=== PATIENT | female | born 1990 | race Caucasian/White ===

== ENCOUNTER 2020-12-22 05:10 | Emergency (ER) | payer OTHER, SELFPAY ==
--- NOTE | ~2020-12-22 | XR_ITS ---
EXAMINATION: XR abdomen/kub 1V DATE: 12/22/2020 10:02 INDICATION: Left flank pain. TECHNIQUE: A supine view of the abdomen on 2 radiographs was obtained. COMPARISON: CT abdomen and pelvis 12/22/2020 FINDINGS: There are no dilated loops of bowel. There is a 4 x 7 mm stone in proximal left ureter at L 2-L3. There are phleboliths in the pelvis. IMPRESSION: 1. 4 x 7 mm stone in proximal left ureter at L2-L3. Reviewed, dictated and finalized at location A.
--- NOTE | ~2020-12-22 | CT_ITS ---
EXAMINATION: CT abdomen pelvis wo con DATE: 12/22/2020 07:39 INDICATION: Kidney stone presenting with left flank pain. TECHNIQUE: Computed tomography (CT) of the abdomen and pelvis was performed without intravenous contr ast. Automated exposure control and iterative reconstruction technique were employed. The dose-length product was 480.00 mGy-cm. COMPARISON: None FINDINGS: Lung bases are clear. Heart size is normal. No pericardial or pleural effusion. Liver, gallbladder, s pleen, pancreas and bilateral adrenal glands are normal. 4 x 7 mm stone in the proximal left ureter r esulting in mild left hydronephrosis. No other urolithiasis. Right kidney and ureter are normal. Blad ynes is normal. A few phleboliths in the pelvis. Anteverted uterus and bilateral adnexa are unremarkab le. Bowels including the appendix are normal. No free intraperitoneal gas or fluid. No pathologically enlarged abdominal or pelvic lymphadenopathy. Bones are unremarkable. IMPRESSION: 1. 4 x 7 mm obstructing stone in the proximal left ureter with mild left hydronephrosis. Reviewed, dictated and finalized at location A. IMPRESSION: 1. 4 x 7 mm obstructing stone in the proximal left ureter with mild left hydron ephrosis.
[2020-12-22 05:16] VITALS: BP 137/87; PULSE 104; RESP 18; TEMP 36.6; O2SAT 96
[2020-12-22 05:42] LABS: Basophils Absolute Auto 0.1 K/mm3 (0.0-0.1); Basophils Percent Auto 0.4 % (0.2-1.2); Eosinophils Absolute Auto 0.1 K/mm3 (0-0.3); Hematocrit 38.4 % (37.0-47.0); Hemoglobin 13.5 g/dL (12.0-15.0); Immature Granulocyte Absolute 0.03 K/mm3 (0.00-0.031); Immature Granulocyte Percent A 0.2 % (0-0.5); Lymphocytes Absolute Auto 1.95 K/mm3 (0.9-3.2); Lymphocytes Percent Auto 15.6 % (18.3-44.2); Mean Corpuscular HGB Conc 35.2 g/dl (32-36); Mean Corpuscular Hemoglobin 30.2 pg (26-34); Mean Corpuscular Volume 85.9 fl (80-100); Mean Platelet Volume 9.6 fl (7.4-10.4); Monocytes Absolute Auto 0.7 K/mm3 (0.1-0.6); Monocytes Percent Auto 5.4 % (2.6-8.5); Neutrophils Absolute Auto 9.7 K/mm3 (1.3-6.7); Neutrophils Percent Auto 77.4 % (45.5-73.1); Platelet Count Result 241 k/mm3 (150-375); Red Blood Count 4.47 M/mm3 (4.2-5.4); Red Cell Distribution Width 11.9 % (11.5-14.5); White Blood Count 12.5 K/mm3 (4.5-10.0)
[2020-12-22 05:52] LABS: Alanine Aminotransferase 16 U/L (4-35); Albumin Level 4.4 g/dL (3.5-5.1); Alkaline Phosphatase 97 U/L (38-126); Anion Gap 10 mmol/L (8-16); Aspartate Amino Transferase 20 U/L (14-36); Bilirubin,Total 0.3 mg/dL (0.2-1.3); Blood Urea Nitrogen 13 mg/dL (7-17); Calcium 9.3 mg/dL (8.4-10.2); Carbon Dioxide 26 mmol/L (22-30); Chloride 104 mmol/L (98-107); Estimated CRCL calculation 124 ml/min; Estimated Glomerular Filt Rate > 60; Glucose 107 mg/dL (65-105); Lipase 76 U/L (23-300); Potassium 3.8 mmol/L (3.4-5.0); Sodium 140 mmol/L (137-145)
[2020-12-22 06:14] LABS: Add Urine Microscopic? YES; Appearance Urine Clear (Clear); Bacteria Urine Trace /hpf; Bilirubin Urine Negative (Negative); Blood Urine 1+ (Negative); Color Urine Yellow (Yellow); Glucose Urine UA Negative (Negative); Ketones Urine Negative (Negative); Leukocyte Esterase Ur 1+ LEU/UL (Negative); Mucus Urine Few /lpf; Nitrate Urine Negative (Negative); Protein Urine 1+ mg/dL (Negative); RBC Urine 21-50 /hpf (0-2); Specific Grav Ur 1.028 (1.001-1.035); Squamous Epithelial Cell Urine Occasional /hpf (Few); Urobilinogen Urine Negative mg/dL (<2.0)
--- NOTE | 2020-12-22 06:59 | ED.BACK ---
HPI - Back Pain/Injury General Chief Complaint: Back Pain/Injury <Deyanira Valadez MD - Last Filed: 12/22/20 07:08> Stated Complaint: left lower back pain <Deyanira Valadez MD - Last Filed: 12/22/20 07:08> Time Seen by Provider: 12/22/20 06:59 <Deyanira Valadez MD - Last Filed: 12/22/20 07:08> Source: patient and RN notes reviewed <Deyanira Valadez MD - Last Filed: 12/22/20 07:08> Mode of arrival: ambulatory <MD Alejandra Blackburn Last Filed: 12/22/20 07:08> Limitations: no limitations <MD Aleajndra Blackburn Last Filed: 12/22/20 07:08> History of Present Illness HPI Narrative: Patient is 30 years old white female presents to the ED with left lower back flank pain woke her up 1 hour prior to arrival to the emergency room associated with nausea and diaphoresis. Patient denies any aggravating or relieving factors. Patient denies any similar symptoms in the past. Patient drove herself to the emergency room. Patient denies any fever, chills, abdominal pain, chest pain, shortness of breath, headache. <Deyanira Valadez MD - Last Filed: 12/22/20 07:08> Related Data Allergies/Adverse Reactions: Allergies Allergy/AdvReac Type Severity Reaction Status Date / Time No Known Allergies Allergy Unverified 12/22/20 05:24 <MD Alejandra Blackburn Last Filed: 12/22/20 07:08> Review of Systems Review of Systems: Narrative: CONSTITUTIONAL: Denies fever, chills, or sweats. EYES: Denies visual changes, redness, or discharge. ENT: Denies rhinorrhea, congestion, sore throat, or otalgia. CARDIOVASCULAR: Denies chest pain, palpitations, or edema. RESPIRATORY: Denies cough or dyspnea. GASTROINTESTINAL: Denies abdominal pain, nausea, vomiting, or diarrhea. GENITOURINARY: Denies dysuria or hematuria. SKIN: Denies rash or itching. MUSCULOSKELETAL: Denies back pain, joint pain, or myalgia. NEUROLOGIC: Denies headache, numbness, or weakness. PSYCHIATRIC: Denies anxiety or depression. <Deyanira Valadez MD - Last Filed: 12/22/20 07:08> [facility] Social History Social History: Social History Gender identity (if verbalized by the patient): Female Sexual Orientation (if Verbalized by the Patient): Straight or Heterosexual <Deyanira Valadez MD - Last Filed: 12/22/20 07:08> Exam Narrative: Exam Narrative: General appearance: Well-developed, well-nourished Skin: Normal color Head: Normocephalic, nontraumatic Eyes: Clear conjunctiva ENT: Oropharynx normal, ears normal, nose normal Neck: Supple, nontender Chest and respiratory: Airway patent, no respiratory distress, no accessory muscle use Heart: Regular rate/rhythm Abdomen: Soft, nontender, no organomegaly, quiet bowel sounds Vascular: Normal peripheral pulses, normal capillary refill. Musculoskeletal: Normal range of motion, nontender back Neurologic: Alert and oriented ?3, [employer] is normal as tested, no gross motor deficit <Deyanira Valadez MD - Last Filed: 12/22/20 07:08> Course Course Emergency Course: Stable <Deyanira Valadez MD - Last Filed: 12/22/20 07:08> Patient reexamined at 10:30 AM, currently denies any pain. Patient states that she is feeling better. <Darrion Webb MD - Last Filed: 12/22/20 10:56> Vital Signs Vital signs: Vital Signs Temperature 36.6 C 12/22/20 05:16 Pulse Rate 104 H 12/22/20 05:16 Respiratory Rate 18 12/22/20 05:16 Blood Pressure 137/87 12/22/20 05:16 Pulse Oximetry 96 12/22/20 05:16 Temperature 36.6 C 12/22/20 05:16 Pulse Rate 74 12/22/20 09:16 Respiratory Rate 15 12/22/20 09:16 Blood Pressure 101/62 12/22/20 09:16 Pulse Oximetry 99 12/22/20 09:16
[2020-12-22] MEDS: ONDANSETRON INJ 4 MG/2 ML VIAL IV PUSH (07:11)
[2020-12-22] MEDS: HYDROmorphone HCL INJ (*CRX) 1 MG/ML SYR 0.5 MG IV PUSH (07:11)
[2020-12-22] MEDS: SODIUM CHLORIDE 0.9% IV 1,000 ML 999 ML IV CONT (07:12)
[2020-12-22] MEDS: TAMSULOSIN HCL 0.4 MG CAPSULE PO (07:13)
[2020-12-22 07:14] VITALS: BP 127/84; PULSE 92; RESP 20; O2SAT 99
--- NOTE | 2020-12-22 07:40 | PC.NURSE ---
Pt to CT via Stretcher at this time.
[2020-12-22 08:03] VITALS: BP 107/64; PULSE 74; RESP 15; O2SAT 99
[2020-12-22 09:16] VITALS: BP 101/62; PULSE 74; RESP 15; O2SAT 99
--- NOTE | 2020-12-22 10:01 | PC.NURSE ---
Pt to XRAY via w/c.
[2020-12-22 11:06] VITALS: BP 101/71; PULSE 75; RESP 14; O2SAT 99
== END 2020-12-22 11:07 | disposition home or self-care (01) ==
PROVIDERS: Emergency Medicine; Emergency Provider Emergency Medicine; PCP Internal Medicine
DX: N13.1 Hydronephrosis with ureteral stricture, not elsewhere classified (principal)
CPT/HCPCS: 36415; 74018; 74176; 80053; 81001; 81025; 83690; 85025; 96361; 96374; 96375; 99284; A9270; J1170; J2405; J7030

== ENCOUNTER → 2020-12-23 12:47 | Outpatient (CLI) | payer OTHER, SELFPAY ==
--- NOTE | ~2020-12-23 | XR_ITS ---
EXAMINATION: XR abdomen/kub 1V EXAM DATE: 12/23/2020 13:59 INDICATION: Follow-up left ureteral stone. TECHNIQUE: Frontal projection(s) of the abdomen for interpretation. Comparison is made to prior exami nation from 12/22/2020. FINDINGS: Left ureteropelvic junction 4 x 6 mm stone reidentified, indicated. Position appears unchan ged between the left L2 and L3 transverse processes. Expected amount of colonic stool. Nonobstructive bowel gas pattern. Lung bases are clear. There is no organomegaly. There are no osseous abnormalitie s identified. IMPRESSION: Left UPJ 4 x 6 mm stone. Reviewed, dictated and finalized at location B. IMPRESSION: Left UPJ 4 x 6 mm stone.
== END ==
PROVIDERS: Visit Provider Nurse Practitioner Adult Health
DX: N20.1 Calculus of ureter (principal)
CPT/HCPCS: 74018

== ENCOUNTER → 2020-12-28 02:33 | Outpatient (CLI) | payer OTHER, SELFPAY ==
[2020-12-28 23:32] LABS: SARS-CoV-2 RNA PCR Negative
== END ==
PROVIDERS: Visit Provider Urology
DX: Z01.812 Encounter for preprocedural laboratory examination (principal); Z20.822 Contact with and (suspected) exposure to COVID-19
CPT/HCPCS: C9803; U0003; U0005

== ENCOUNTER 2020-12-28 13:57 | Outpatient (CLI) | payer OTHER, SELFPAY ==
[2020-12-28 14:36] LABS: INR 0.9; Prothrombin Time 12.6 Seconds (11.1-14.7)
[2020-12-28 14:37] LABS: Partial Thromboplastin Time 30.1 SECONDS (22.3-36.8)
[2020-12-28 14:50] LABS: Beta HCG Quantitative < 2.39 mIU/ML
== END 2020-12-28 13:58 | disposition home or self-care (01) ==
LOC: ANHSURGERY 13:59
PROVIDERS: Visit Provider Urology
DX: N20.1 Calculus of ureter (principal); Z01.818 Encounter for other preprocedural examination
CPT/HCPCS: 36415; 84702; 85610; 85730

== ENCOUNTER 2020-12-31 02:38 | Day surgery (SDC) | payer OTHER, SELFPAY ==
[2020-12-28 10:15] VITALS: BMI 25.8
[2020-12-31] VITALS (7 sets, daily range): BP systolic 107–132; BP diastolic 66–79; PULSE 72–102; RESP 14–19; TEMP 36.2–37; O2SAT 98–100
--- NOTE | ~2020-12-31 | XR_ITS ---
XR abdomen/kub 1V 12/31/2020 06:57 Indication: Left ureteral stone Procedure: KUB Comparison: 12/23/2020 Findings: There is a stable position to left UPJ stone measuring 6 mm maximum dimension. There are pe lvic phleboliths. Bowel pattern is nonobstructive. No acute osseous abnormality. Impression: 1: Stable position to left UPJ stone measuring 6 mm. Reviewed, dictated and finalized at location B. Impression: 1: Stable position to left UPJ stone measuring 6 mm.
--- NOTE | 2020-12-31 07:51 | WPDHPUPDATE1 ---
History and Physical Update Update Date/Time: 12/31/20 07:51 History and Physical has been reviewed, including an updated exam of the patient. There are NO changes in the patient's condition. Risks, benefits, and alternatives have been discussed and questions answered. Patient agrees to proceed with procedure.
--- NOTE | 2020-12-31 07:54 | WPDANESEPPF ---
Anes - Initial Pre Proc Eval Procedure: Operation Date: 12/31/20 08:45 Proposed Procedures p Left Ureteral Extracorporeal Shock Wave Lithotripsy - Aaron Barker MD Date/Time: 12/31/20 07:54 Surgeon: Aaron Barker MD Pre Op Diagnosis: left ureteral stone Patient Data Age: 30 Gender: F Height: 5 ft 9 in Weight: 79.2 kg Last Vital Signs Temp 36.2 C L 12/31/20 07:07 Pulse 102 H 12/31/20 07:07 Resp 16 12/31/20 07:07 BP 132/79 12/31/20 07:07 Pulse Ox 100 12/31/20 07:07 Allergies Allergy/AdvReac Type Severity Reaction Status Date / Time No Known Allergies Allergy Unverified 12/31/20 07:28 Home Medications Medication Instructions Recorded Confirmed Type No Home Medications 12/31/20 12/31/20 History Patient hx anesthesia problems: none Family hx anesthesia problems: none PMFSH Social History Social History Smoking status: Never smoker Alcohol intake: never Substance use: never Substance use type: does not use Living arrangements: with family Gender identity (if verbalized by the patient): Female Spiritual care concerns: No Anes - Eval Final PreProcedure Day of Procedure 12/31/20 07:54 Patient weight: overweight Heart: regular rate and rhythm Lungs: clear to auscultation Airway: Mallampati scale Neurological: alert and oriented Last oral intake: >/= 8 hours ASA classification: II Emergent: no Anesthetic plan: proceed Anesthesia type and monitoring: general LMA and standard monitoring Informed Consent: The patient's anesthetic plan and its attendant risks and benefits were discussed with the patient/family/POA. Questions were solicited and answers provided to the satisfaction of the patient/family/POA.
[2020-12-31] MEDS: LACTATED RINGERS 1,000 ML 30 ML IV CONT ×2 (08:05→09:20)
--- NOTE | 2020-12-31 08:09 | WPDURCON ---
Assessment and Plan Assessment and plan (1) Left ureteral stone: Code(s): N20.1 - Calculus of ureter Status: Acute Additional Plan Risks, benefits, alternatives were discussed the patient. We discussed options of medical expulsive therapy, ureteroscopy, and ESWL. The patient has elected proceed with left ureteral ESWL. She understands the risks of procedure including but not limited to infection, pain, bleeding, inability to fragment the stone, need for additional operations. She elects to proceed today. Urology Consult Note HPI Date Seen: 12/31/20 Requesting Physician: Aaron Barker MD Primary Care Provider: Azam Mccarty, Consult Narrative Narrative: Sinai Pfeiffer is a 30 year old female with left proximal ureteral stone. The patient is the ER and diagnosed stone. She presents today for definitive stone management she currently denies fevers chills nausea vomiting or shortness of breath Review of Systems Review of Systems: All systems reviewed & are unremarkable except as noted in HPI and below PMFSH Past Medical History Medical History (Updated 12/31/20 @ 08:10 by Aaron Barker MD) Left ureteral stone Social History Social History Smoking status: Never smoker Alcohol intake: never Substance use: never Substance use type: does not use Living arrangements: with family Gender identity (if verbalized by the patient): Female Spiritual care concerns: No Meds Home Medications and Allergies Home Medications Medication Instructions Recorded Confirmed Type No Home Medications 12/31/20 12/31/20 History Allergies Allergy/AdvReac Type Severity Reaction Status Date / Time No Known Allergies Allergy Unverified 12/31/20 07:28 Vital Signs Vital Signs - 24 hr 12/31/20 07:07 Temperature 36.2 C L Pulse Rate 102 H Respiratory Rate 16 Blood Pressure 132/79 Pulse Oximetry 100 Exam Narrative: Exam Narrative: Awake alert oriented in no acute distress. Breathing is unlabored. Abdomen soft nontender nondistended Results Imaging Attestation: I personally reviewed and interpreted this imaging study as follows: Radiologist's impression: EXAMINATION: CT abdomen pelvis wo con DATE: 12/22/2020 07:39 INDICATION: Kidney stone presenting with left flank pain. TECHNIQUE: Computed tomography (CT) of the abdomen and pelvis was performed without intravenous contrast. Automated exposure control and iterative reconstruction technique were employed. The dose-length product was 480.00 mGy-cm. COMPARISON: None FINDINGS: Lung bases are clear. Heart size is normal. No pericardial or pleural effusion. Liver, gallbladder, spleen, pancreas and bilateral adrenal glands are normal. 4 x 7 mm stone in the proximal left ureter resulting in mild left hydronephrosis. No other urolithiasis. Right kidney and ureter are normal. Bladder is normal. A few phleboliths in the pelvis. Anteverted uterus and bilateral adnexa are unremarkable. Bowels including the appendix are normal. No free intraperitoneal gas or fluid. No pathologically enlarged abdominal or pelvic lymphadenopathy. Bones are unremarkable. IMPRESSION: 1. 4 x 7 mm obstructing stone in the proximal left ureter with mild left hydronephrosis. Reviewed, dictated and finalized at location A. Dictated By: Dom Rose MD 12/22/20 0753 Signed By: <Electronically signed by Dom Rose MD in [place]>
[2020-12-31] MEDS: ceFAZolin 2 GM/D5W 50 ML 2 GM/50 ML BAG IVPB (08:32)
--- NOTE | 2020-12-31 09:37 | W.PM.PROC2 ---
Procedure Note - Detailed Date of Procedure 12/31/20 Pre-op Diagnosis left ureteral stone Post-op Diagnosis same Procedure Performed Left ureteral as well Surgeon Aaron Barker MD Anesthesia general Description of Procedure Informed consents obtained. Patient taken the operating. She was given preoperative IV antibiotics. She induced with anesthesia. We identified the stone in the proximal ureter. A total of 2500 shocks were given using the Dornier lithotripsy device. We used power from 1 to 3. There was good fragmentation of the stone. The patient tolerated procedure well she was awakened and taken to PACU in stable condition Drains No Packing No Pathology none sent Complications No immediate complications Condition stable Disposition PACU
== END 2020-12-31 11:00 | disposition home or self-care (01) ==
PROVIDERS: PCP Internal Medicine; Visit Provider Urology
PROC: (CPT 50590; principal; 2020-12-31 08:45)
DX: N13.2 Hydronephrosis with renal and ureteral calculous obstruction (principal)
CPT/HCPCS: 50590; 36415; 74018; 84702; 85610; 85730; C9803; J0690; J1100; J2405; J2704; J7120; U0003; U0005

== ENCOUNTER → 2021-01-12 10:51 | Outpatient (CLI) | payer OTHER, SELFPAY ==
--- NOTE | ~2021-01-12 | XR_ITS ---
EXAMINATION: XR abdomen/kub 1V DATE: 01/12/2021 11:08 INDICATION: Calculus of ureter. TECHNIQUE: A supine view of the abdomen on 2 radiographs was obtained. COMPARISON: CT abdomen and pelvis 12/22/2020, abdomen radiograph 12/31/2020 FINDINGS: There are no dilated loops of bowel. There are phleboliths in left pelvis. IMPRESSION: 1. No visible urolithiasis. Reviewed, dictated and finalized at location A. IMPRESSION: 1. No visible urolithiasis.
== END ==
PROVIDERS: Visit Provider Urology
DX: N20.1 Calculus of ureter (principal)
CPT/HCPCS: 74018

== ENCOUNTER 2021-03-19 01:47 | Emergency (ER) | payer OTHER, SELFPAY ==
--- NOTE | ~2021-03-19 | XR_ITS ---
EXAMINATION: XR soft tissue neck, XR abdomen/kub 1V, XR chest 2V DATE: 03/19/2021 02:50 (accession [id number]), 03/19/2021 04:36 (accession [id number]), 03/19 02:49 (accession [id number]) INDICATION: Possible aspirated nose ring TECHNIQUE: 1. AP an lateral views of the soft tissues of the neck were obtained. 2. PA and lateral views of the chest were obtained. 3. AP view of the abdomen and pelvis was obtained on 2 overlapping images. COMPARISON: none FINDINGS: No radiopaque foreign bodies identified at the neck, chest, abdomen or pelvis. The cervical airway is unremarkable with normal epiglottis and prevertebral soft tissues. Lungs are clear with no focal air space opacities, pulmonary edema, pleural effusion or pneumothorax. Cardiomediastinal silhouette is n ormal. Normal bowel gas pattern with no dilated loops of bowel to suggest obstruction. Chronic superi or normal. A few phleboliths in the left hemipelvis. Bones are unremarkable. IMPRESSION: 1. Normal radiographs of the neck, chest, abdomen and pelvis. No evident radiopaque foreign bodies. Reviewed, dictated and finalized at location A. IMPRESSION: 1. Normal radiographs of the neck, chest, abdomen and pelvis. No evident radiop aque foreign bodies. IMPRESSION: 1. Normal radiographs of the neck, chest, abdomen and pelvis. No evident radiop aque foreign bodies.
[2021-03-19 01:48] VITALS: BP 128/80; PULSE 98; RESP 18; TEMP 36.7; O2SAT 100
[2021-03-19 02:00] VITALS: RESP 14
--- NOTE | 2021-03-19 04:26 | ED.GENADULT ---
HPI - General Adult General Chief complaint: Unspecified Stated complaint: inhaled my nose ring Time Seen by Provider: 03/19/21 03:02 Source: RN notes reviewed History of Present Illness HPI narrative: Patient presents to emergency department from home for possible foreign body in throat. Patient states that approximately 24 hours ago she awoke from sleeping and her nose ring was gone she states that during the day today she has felt like there is an something in her throat was afraid that the nose ring was stuck in her throat patient states she has not had any shortness of breath she denies any fevers or chills she states she did look around the house her nose ring and could not find it Related Data Home Medications Medication Instructions Recorded Confirmed No Home Medications 12/31/20 12/31/20 Allergies Allergy/AdvReac Type Severity Reaction Status Date / Time No Known Allergies Allergy Unverified 12/31/20 07:28 Review of Systems Review of Systems: Gen.: Denies fevers or chills ENT: Reports mild feeling of foreign body in throat Respiratory: Denies shortness of breath or cough CV: Denies chest pain GI: Denies abdominal pain nausea, emesis Neuro: Denies headache Skin: Denies rash Except as documented, all other systems reviewed and negative PMFSH Past Medical History Medical History Left ureteral stone Social History Social History Smoking status: Never smoker Alcohol intake: never Substance use: never Substance use type: does not use Gender identity (if verbalized by the patient): Female Sexual Orientation (if Verbalized by the Patient): Straight or Heterosexual Spiritual care concerns: No Exam Narrative: APPEARANCE: No acute distress, nontoxic, resting in bed EYES: EOMI HEENT: Normocephalic, atraumatic, OMM no erythema exudate posterior pharynx no foreign body seen, uvula midline tolerating own secretions voice normal RESPIRATORY: No respiratory distress Clear to auscultation bilaterally with no rhonchi wheezing or rales. CARDIOVASCULAR: Regular rate and rhythm without murmurs rubs or gallops. ABDOMINAL: Soft, nontender, nondistended, MUSCULOSKELETAl: Moves all extremities. NEURO: Awake and alert. Following commands, speech normal, no focal deficits SKIN:: Warm, dry. No rashes lesions or abrasions PSYCHIATRIC: Normal affect/mood, Course Course Emergency Course: Discussed with patient results of workup and diagnosis. Discussed need for follow-up with primary care, proper use of medication, and reasons to return to the emergency department. Patient understands and agrees to current treatment plan Vital Signs Vital signs: Vital Signs Temperature 98.0 F 03/19/21 01:48 Pulse Rate 98 03/19/21 01:48 Respiratory Rate 18 03/19/21 01:48 Blood Pressure 128/80 03/19/21 01:48 Pulse Oximetry 100 03/19/21 01:48 Temperature 98.0 F 03/19/21 01:48 Pulse Rate 98 03/19/21 01:48 Respiratory Rate 14 03/19/21 02:00 Blood Pressure 128/80 03/19/21 01:48 Pulse Oximetry 100 03/19/21 01:48 Medical Decision Making MDM Narrative Medical decision making narrative: Patient with nose ring that was metal not seen on x-rays Vital Signs Vital Signs: Vital Signs Temperature 98.0 F 03/19/21 01:48 Pulse Rate 98 03/19/21 01:48 Respiratory Rate 18 03/19/21 01:48 Blood Pressure 128/80 03/19/21 01:48 Pulse Oximetry 100 03/19/21 01:48 Temperature 98.0 F 03/19/21 01:48 Pulse Rate 98 03/19/21 01:48 Respiratory Rate 14 03/19/21 02:00 Blood Pressure 128/80 03/19/21 01:48 Pulse Oximetry 100 03/19/21 01:48 Imaging Data Attestation: I personally reviewed and interpreted this imaging study as follows: My impression: 1 view abdomen shows no foreign body Radiologist's impression: Chest x-ray shows no acute findings no radiopaque foreig
[2021-03-19 04:53] VITALS: BP 117/69; PULSE 90; RESP 17; O2SAT 99
== END 2021-03-19 04:54 | disposition home or self-care (01) ==
PROVIDERS: Emergency Provider Emergency Medicine; PCP Internal Medicine
DX: R09.89 Other specified symptoms and signs involving the circulatory and respiratory systems (principal); Z87.442 Personal history of urinary calculi
CPT/HCPCS: 70360; 71046; 74018; 99283; 99284